=== PATIENT | male | born 1975 | race Caucasian/White ===

== ENCOUNTER 2022-07-24 07:56 | Emergency (ER) | payer OTHER | END 2022-07-24 10:18 | disposition home or self-care (01) | LOC: DL.ED 07:56 | DX: S46.911A Strain of unspecified muscle, fascia and tendon at shoulder and upper arm level, right arm, initial encounter (principal); Z72.0 Tobacco use; V86.52XA Driver of snowmobile injured in nontraffic accident, initial encounter | CPT/HCPCS: 73000-RT; 99283 ==